=== PATIENT | male | born 1995 | race Two or more races ===

== ENCOUNTER 2019-09-28 08:57 | Emergency (ER) | payer BC ==
[~2019-09-28] VITALS: Ht 172.7 cm; Wt 68.0 kg
[2019-09-28 09:08] VITALS: BP 137/66
[2019-09-28] MEDS ORDERED: KETOROLAC 30 MG/ML VIAL. IM STA (09:14)
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
== END 2019-09-28 09:55 | disposition home or self-care (01) ==
LOC: ER 08:57
DX: M79.661 Pain in right lower leg (principal); M79.671 Pain in right foot; G89.11 Acute pain due to trauma; V49.49XA Driver injured in collision with other motor vehicles in traffic accident, initial encounter; Y93.89 Activity, other specified; Y92.488 Other paved roadways as the place of occurrence of the external cause; Y99.8 Other external cause status
CPT/HCPCS: 73590; 73610; 73630; 96372; 99284; J1885; 99285-25

== ENCOUNTER 2021-12-01 12:54 | Emergency (ER) | payer BC, OTHER ==
[~2021-12-01] VITALS: Ht 175.3 cm; Wt 61.4 kg
--- NOTE | 2021-12-01 13:43 | PHYS DOC ---
Past Medical History Past Medical History: No Pertinent History Past Surgical History: No Surgical History Smoking Status: Never Smoker Alcohol Use: None Drug Use: None General Adult EDM: Chief Complaint: FOOT INJURY PAIN HPI: HPI: Patient is a 26 year old male who presents with left toe pain since earlier t joni. Dropped a metal weight on top of his left pinky toe. He has noticed swelling and blood underneath his toenail. He has seen blood draining from underneath the toenail. Painful to walk on. Denies any injury to the rest of his foot or other toes. Denies any other injuries. Tetanus is up-to-date in the past 5 years. Review of Systems: Review of Systems: Constitutional: Denies fever or chills. [] HENT: Denies nasal congestion or sore throat. [] Respiratory: Denies cough or shortness of breath. [] Musculoskeletal: Reports left pinky toe pain and blood underneath his left pinky toenail. Integument: Denies rash. [] Heart Score: C/O Chest Pain: No Allergies: Allergies: Allergies Coded Allergies Type Severity Reaction Last Updated Verified No Known Drug Allergies 09/28/19 No Physical Exam: PE: Constitutional: Well developed, well nourished, no acute distress, non-toxic appearance. [] HENT: Normocephalic, atraumatic Cardiovascular: Regular rate Lungs & Thorax: Normal work of breathing Skin: Purple discoloration of the left fifth toe Extremities: Edema, purple discoloration, and tenderness to the left fifth toe. Blood coming from underneath the left fifth toenail with evidence of complete subungual hematoma. No evidence of nailbed avulsion. The remainder of the toes, forefoot, midfoot, hindfoot, and ankle are nontender, without evidence of trauma Neurologic: Alert and oriented X 3, normal motor function, normal sensory function, no focal deficits noted. [] Psychologic: Affect normal, judgement normal, mood normal. [] Current Patient Data: Vital Signs: Vital Signs Date Time Temp Pulse Resp B/P (MAP) Pulse Ox O2 Delivery O2 Flow Rate FiO2 12/01/21 13:26 97.6 71 18 118/65 (82) 98 Room Air 97.6 EKG: EKG: [] Radiology/Procedures: Radiology/Procedures: Procedure: Nail trephination Indication: Subungual hematoma of the left fifth toe The nail was cleansed with a iodine solution. The iodine solution was lightly dried. Electrocautery was used to trephinate the nail with this 1 small hole. Blood return through the trephination site was seen. Patient was bandaged with a nonadherent bandage with judah tape to the next toe and provided a postop shoe. [] Impression: [facility] [address] [place] [address] IMAGING REPORT Signed PATIENT: LANEY REYNOLDS ACCOUNT: [id number] : 1995 LOCATION: ER AGE: 26 SEX: M EXAM STATUS: REG ER ORD. PHYSICIAN: HERON HESS MD REASON: left pink toe pain, dropped weight on it PROCEDURE: TOES LEFT XR LT TOE 2+ VIEWS Clinical indications: Reason: left small toe pain, dropped weight on it Findings: There is a nondisplaced fracture of the distal tuft of the fifth distal phalanx. No dislocation or lytic process is seen. IMPRESSION: Fracture of the fifth distal phalanx. Electronically signed by: Yu Doll MD (12/01/2021 1:54 PM) [id number] DICTATED and SIGNED BY: YU DOLL MD DATE: 12/01/21 [id number] 0 Course & Med Decision Making: Course & Med Decision Making Pertinent Labs and Imaging studies reviewed. (See chart for details) Patient a 26-year-old male who presents with left pinky toe pain after dropping a weight on it. Tetanus is up-to-date. Exam shows subungual hematoma. X-ray shows a distal phalanx fracture. Trephinated as above with good effect. Toe was judah taped and provided with postop shoe and crutches. Weightbearing as tolerated advised, and patient given orthopedic follow-up given that he does not have a primary care doctor [] Dragon Disclaimer: Dragon Disclaimer: This electronic medical record was generated, in whole or in part, using a voice recognition dictation system. Departure Departure Impression: Primary Impression: Toe pain Additional Impression: Subungual hematoma of fifth toe of left foot Disposition: HOME / SELF CARE / HOMELESS Condition: STABLE Referrals: NO PCP (PCP) SIXTO HIRSCH II, MD Schedule follow-up appointment. Patient Instructions: Judah Taping of Toes, Toe Fracture Additional Instructions: You broke your pinky toe. This should be judah taped to the next toe. You can bear weight as tolerated, but in the first few days you will likely need a postop shoe and crutches to help this more be tolerable. You may need light work duty as you heal over the next 4-6 weeks. Please schedule a follow-up appointment with the on-call orthopedist, Dr. Hirsch. For pain tylenol and ibuprofen are best used on a schedule. Please alternate between the two. -Tylenol 1000 mg every 6 hours (do not exceed 4000 mg in one day) -Ibuprofen 400-600 mg every 6 hours. Take with food. Do not take for more than 1 week. HERON HESS MD Dec 01, 2021 13:42
--- NOTE | 2021-12-01 13:57 | RAD ---
XR LT TOE 2+ VIEWS Clinical indications: Reason: left small toe pain, dropped weight on it Findings: There is a nondisplaced fracture of the distal tuft of the fifth distal phalanx. No disloca tion or lytic process is seen. IMPRESSION: Fracture of the fifth distal phalanx. Electronically signed by: Kyle Doll MD (12/01/2021 1:54 PM) [id number]
[2021-12-01 14:53] VITALS: BP 115/67
== END 2021-12-01 15:19 | disposition home or self-care (01) ==
LOC: ER 12:54
DX: S90.122A Contusion of left lesser toe(s) without damage to nail, initial encounter (principal); W20.8XXA Other cause of strike by thrown, projected or falling object, initial encounter; Y93.89 Activity, other specified; Y92.89 Other specified places as the place of occurrence of the external cause; Y99.8 Other external cause status
CPT/HCPCS: 11740; 73660; 99284